=== PATIENT | male | born 1990 | race Two or more races ===

== ENCOUNTER 2024-12-17 11:16 | Emergency (ER) | payer OTHER ==
[~2024-12-17] VITALS: Ht 185.4 cm; Wt 98.2 kg
[2024-12-17 11:49] VITALS: TEMP 98.3
[2024-12-17 13:53] VITALS: BP 140/80; PULSE 70; RESP 18; O2SAT 99
== END 2024-12-17 13:54 | disposition home or self-care (01) ==
LOC: EMS 11:35
DX: K59.00 Constipation, unspecified (principal); Z71.6 Tobacco abuse counseling
CPT/HCPCS: 74176; 99284; Z7502